=== PATIENT | male | born 1965 | race Two or more races ===

== ENCOUNTER 2019-02-19 08:53 | Emergency (ER) | payer OTHER ==
[~2019-02-19] VITALS: Ht 172.7 cm; Wt 77.1 kg
[2019-02-19] MEDS ORDERED: DICLOFENAC SOD100 MG PO (13:40)
== END 2019-02-19 13:55 ==
LOC: ER 08:53
DX: M25.531 Pain in right wrist (principal)

== ENCOUNTER 2022-10-25 10:17 | Outpatient (CLI) | payer OTHER ==
[~2022-10-25 10:17] MED LIST: DICLOFENAC SOD100 MG PO; GABAPENTIN300 M2 PO; NABUMETONE750 MG PO
== END 2022-10-25 10:27 | disposition home or self-care (01) ==
LOC: RAD 10:17
PROVIDERS: ATTEND General Practice
DX: R05.9 Cough, unspecified (principal); R06.02 Shortness of breath

== ENCOUNTER 2022-10-25 12:48 | Outpatient (CLI) | payer OTHER | END 2022-10-25 12:52 | disposition home or self-care (01) | LOC: LAB 12:48 | PROVIDERS: ATTEND General Practice | DX: R05.9 Cough, unspecified (principal); R06.02 Shortness of breath; Z20.822 Contact with and (suspected) exposure to COVID-19 ==

== ENCOUNTER 2023-02-15 10:22 | Outpatient (CLI) | payer OTHER | END 2023-02-15 10:30 | disposition home or self-care (01) | LOC: RAD 10:22 | PROVIDERS: ATTEND General Practice | DX: R53.81 Other malaise (principal); R05.9 Cough, unspecified; Z13.83 Encounter for screening for respiratory disorder NEC ==

== ENCOUNTER 2024-02-13 09:53 | Outpatient (CLI) | payer OTHER | END 2024-02-13 10:04 | disposition home or self-care (01) | LOC: SONOGRAMA 09:53 | PROVIDERS: ATTEND General Practice | DX: R49.0 Dysphonia (principal); R05.9 Cough, unspecified ==

== ENCOUNTER 2024-02-16 12:55 | Outpatient (CLI) | payer OTHER | END 2024-02-16 13:04 | disposition home or self-care (01) | LOC: TOM 12:55 | PROVIDERS: ATTEND General Practice | DX: R05.9 Cough, unspecified (principal); R06.02 Shortness of breath; Z86.16 Personal history of COVID-19 ==

== ENCOUNTER 2024-09-18 06:30 | Outpatient (CLI) | payer OTHER ==
[2024-09-18 07:14] LABS: URINE APPEARANCE Clear; URINE BILIRRUBIN Negative (NEGATIVE); URINE BLOOD Negative; URINE COLOR Yellow; URINE GLUCOSE Negative (NEGATIVE); URINE KETONE Negative (NEGATIVE); URINE LEUKOCYTE Negative; URINE NITRATE Negative; URINE PROTEIN Negative (NEGATIVE); URINE UROBILINOGEN 0.2 E.U./dl
[2024-09-18 07:18] LABS: URINE BACTERIA 6.1 uL (0.0-1933); URINE WBC 2.2 uL (0.0-23.2)
[2024-09-18 07:26] LABS: ob NEGATIVE (NEGATIVE)
[2024-09-18 07:46] LABS: URINE CAST 0.14 uL (0.0-1.40); URINE EPITHELIAL CELLS 0.7 uL (0.0-38.8); URINE RBC 1.6 uL (0.0-20.8)
[2024-09-18 07:54] LABS: HEMATOCRIT 45.1 % (39.0-48.0); HEMOGLOBIN 15.6 g/dL (13-16.00); MEAN CELL VOLUME 89.5 fL (80.0-100.00); MEAN CORPUSCULAR HEMOGLOBIN 31.1 pg (27.00-32.0); MEAN CORPUSCULAR HGB CONC 34.7 g/dl (32.0-36.0); PLATELET COUNT 274 K/uL (150-450); RED BLOOD COUNT 5.03 M/uL (4.00-6.00); RED CELL DISTRIBUTION WIDTH 13.6 % (11.5-14.5)
[2024-09-18 07:58] LABS: CALCIUM 9.2 mg/dL (8.5-10.1); GFR 76.22; POTASSIUM 4.05 mEq/L (3.5-5.1)
[2024-09-18 09:59] LABS: ERYTHROCYTE SEDIMENTATION RATE 12 mm/hr
== END 2024-09-18 06:40 | disposition home or self-care (01) ==
LOC: LAB 06:30
PROVIDERS: ATTEND General Practice
DX: K29.00 Acute gastritis without bleeding (principal); K29.50 Unspecified chronic gastritis without bleeding; R10.9 Unspecified abdominal pain

== ENCOUNTER 2024-09-18 08:02 | Outpatient (CLI) | payer OTHER | END 2024-09-18 08:04 | disposition home or self-care (01) | LOC: SONOGRAMA 08:02 | PROVIDERS: ATTEND General Practice | DX: R10.9 Unspecified abdominal pain (principal) ==

== ENCOUNTER → 2024-09-25 12:54 | Outpatient (CLI) | payer OTHER ==
[2024-09-25 13:58] LABS: HEMATOCRIT 44.8 % (39.0-48.0); HEMOGLOBIN 15.5 g/dL (13-16.00); MEAN CELL VOLUME 89.2 fL (80.0-100.00); MEAN CORPUSCULAR HEMOGLOBIN 30.8 pg (27.00-32.0); MEAN CORPUSCULAR HGB CONC 34.5 g/dl (32.0-36.0); PLATELET COUNT 262 K/uL (150-450); RED BLOOD COUNT 5.02 M/uL (4.00-6.00); RED CELL DISTRIBUTION WIDTH 13.6 % (11.5-14.5)
== END | disposition home or self-care (01) ==
LOC: LAB 12:54
PROVIDERS: ATTEND General Practice
DX: B34.9 Viral infection, unspecified (principal); Z20.822 Contact with and (suspected) exposure to COVID-19; A49.3 Mycoplasma infection, unspecified site

== ENCOUNTER → 2024-09-26 07:09 | Outpatient (CLI) | payer OTHER ==
[2024-09-26 07:53] LABS: PH,URINE 6.5 (5.0-8.0); URINE APPEARANCE Clear; URINE BILIRRUBIN Negative (NEGATIVE); URINE BLOOD Negative; URINE COLOR Yellow; URINE GLUCOSE Negative (NEGATIVE); URINE KETONE Negative (NEGATIVE); URINE LEUKOCYTE Negative; URINE NITRATE Negative; URINE PROTEIN Negative (NEGATIVE); URINE UROBILINOGEN 0.2 E.U./dl
[2024-09-26 07:56] LABS: URINE RBC 2.2 uL (0.0-20.8); URINE WBC 3.6 uL (0.0-23.2)
[2024-09-26 08:00] LABS: URINE BACTERIA 2.4 uL (0.0-1933); URINE EPITHELIAL CELLS 0.9 uL (0.0-38.8)
[2024-09-26 08:09] LABS: HEMATOCRIT 43.1 % (39.0-48.0); HEMOGLOBIN 15.1 g/dL (13-16.00); MEAN CELL VOLUME 89.6 fL (80.0-100.00); MEAN CORPUSCULAR HEMOGLOBIN 31.4 pg (27.00-32.0); PLATELET COUNT 243 K/uL (150-450); RED BLOOD COUNT 4.81 M/uL (4.00-6.00); RED CELL DISTRIBUTION WIDTH 13.7 % (11.5-14.5)
[2024-09-26 09:10] LABS: ALBUMIN 3.5 gm/dL (3.4-5.0); BILIRUBIN TOTAL 0.33 mg/dL (0.3-1.2); CALCIUM 9.1 mg/dL (8.5-10.1); CHOL HDL RATIO 5.2 (0-5.0); CREATININE SERUM 0.89 mg/dL (0.70-1.30); GFR 87.19; POTASSIUM 4.2 mEq/L (3.5-5.1); PROSTATIC SPECIFIC ANTIGEN 1.13 NG/ML (0.010-4.00); TOTAL PROTEIN 6.5 gm/dL (6.4-8.2); TSH 2.01 uIU/mL (0.358-3.74)
[2024-09-28 01:09] LABS: hav igm Negative (Negative); hcv Non Reactive (Non Reactive); hep b c Negative (Negative); hep b s ag Negative (Negative)
== END | disposition home or self-care (01) ==
LOC: LAB 07:09
PROVIDERS: ATTEND General Practice
DX: E03.9 Hypothyroidism, unspecified (principal); N39.0 Urinary tract infection, site not specified; E78.5 Hyperlipidemia, unspecified; Z11.3 Encounter for screening for infections with a predominantly sexual mode of transmission; Z13.1 Encounter for screening for diabetes mellitus; Z12.5 Encounter for screening for malignant neoplasm of prostate

== ENCOUNTER 2024-10-03 10:14 | Outpatient (CLI) | payer OTHER ==
[2024-10-03 11:09] LABS: INR 1.01
[2024-10-05 01:05] LABS: hav igm Negative (Negative); hcv Non Reactive (Non Reactive); hep b c Negative (Negative); hep b s ag Negative (Negative)
== END 2024-10-03 10:16 | disposition home or self-care (01) ==
LOC: LAB 10:14
PROVIDERS: ATTEND Internal Medicine Gastroenterology
DX: D68.9 Coagulation defect, unspecified (principal); C17.9 Malignant neoplasm of small intestine, unspecified